=== PATIENT | female | born 1930 | race African-American/Black ===

== ENCOUNTER 2017-06-21 14:54 | Inpatient (IN) | payer OTHER ==
[~2017-06-21] VITALS: Ht 144.8 cm; Wt 59.5 kg
[~2017-06-21 14:54] MED LIST: ADULT LOW DOSE81 M1 PO; ALENDRONATE SOD70 MG PO; AMLODIPINE BESYL5 MG PO; ASPIR-TRIN325 M1 PO; ASPIRIN CHEWABL81 M1 GT; Ascorbic Acid,Ester- PO; CALTRATE 600 +1 EAC1 PO; COLCHICINE,COL0.6 MG PO; COLCHICINE0.6 MG PO; COUMADIN5 MG PO; Coumadin,Jantoven PO; Dulcolax PO; Ecotrin PO; FOSAMAX70 MG PO; Fosamax PO; LOVENOX60 MG/0.6 SC; MELOXICAM7.5 MG PO; MOBIC7.5 MG PO; NEXIUM20 MG PO; NEXIUM40 MG PO; NORVASC5 MG PO; Norvasc PO; OSCAL, OYSTER500 MG PO; Oyst-Cal D, Oscal W/ PO; PRAVACHOL40 MG PO; PREDNISONE5 MG PO; PROTONIX40 MG PO; PULMICORT180 MICROG IH; SENOKOT S,PE1 TABLET PO; SIMVASTATIN40 M1 PO; THERAGRAN1 TABLET PO; Tylenol Regular Stre PO; VITAMIN D50000 UNI1 PO; Vicodin,Lortab 5/500 PO; Zocor PO
[2017-06-21 15:41] LABS: HEMATOCRIT 39.1 % (36.0-46.0); HEMOGLOBIN 13.5 G/DL (11.9-15.5); MCH 30.3 PG (29.0-34.0); MCHC 34.5 G/DL (30.0-36.0); MCV 87.7 FL (83-99); PLATELET COUNT 210 K/uL (156-360); RBC DIS.WIDTH-CV 14.8 % (11.8-14.6); RBC DIS.WIDTH-SD 47.9 % (39-53); RED BLOOD COUNT 4.46 M/uL (3.80-5.20); WHITE BLOOD COUNT 6.6 K/uL (4.1-10.2)
[2017-06-21 15:48] LABS: INTER. NORMALIZED RATIO 2.8
[2017-06-21 15:49] LABS: CHLORIDE 107 mEq/L (99-109); POTASSIUM 3.7 mEq/L (3.7-5.4); SODIUM 141 mEq/L (136-147)
[2017-06-21 15:51] LABS: GLUCOSE 104 mg/dL (70-99)
[2017-06-21 15:55] LABS: CREATININE 0.9 mg/dL (0.6-1.3); GFR ESTIMATE (CALCULATED) > 59 mL/min/
[2017-06-21 15:56] LABS: UREA NITROGEN (BUN) 16 mg/dL (9-23)
[2017-06-21 16:01] LABS: TROP-I INTERPRETATION NEGATIVE; TROPONIN-I < 0.01 ng/mL (0.0-0.30)
[2017-06-21] MEDS ORDERED: COUMADIN2.5 MG PO (16:42)
[2017-06-21] MEDS ORDERED: COUMADIN5 MG PO (16:42)
[2017-06-21] MEDS ORDERED: COMBIGAN O20 DROP/5 BOTH EYES (16:45)
[2017-06-21] MEDS ORDERED: PROAIR HFA8.5 GM IH (16:45)
[2017-06-21] MEDS ORDERED: COLCRYS0.6 MG PO (16:46)
[2017-06-21] MEDS ORDERED: ERGOCALCIF50000 UNIT PO (16:46)
[2017-06-21] MEDS ORDERED: LUMIGAN 0.50 DROP/22 BOTH EYES (16:46)
[2017-06-21 17:27] LABS: CREATINE KINASE 144 IU/L (1-294)
[2017-06-21 18:41] VITALS: BP 127/76
[2017-06-21 18:57] VITALS: BP 138/82
[2017-06-21 20:10] VITALS: BP 142/72
[2017-06-21 22:08] VITALS: BP 128/64
[2017-06-21 23:14] VITALS: BP 135/69
[2017-06-22 03:34] VITALS: BP 135/72
[2017-06-22 06:14] LABS: HEMOGLOBIN 12.5 G/DL (11.9-15.5); MCH 29.3 PG (29.0-34.0); MCHC 33.8 G/DL (30.0-36.0); MCV 86.9 FL (83-99); PLATELET COUNT 185 K/uL (156-360); RBC DIS.WIDTH-CV 14.6 % (11.8-14.6); RBC DIS.WIDTH-SD 46.7 % (39-53); RED BLOOD COUNT 4.26 M/uL (3.80-5.20); WHITE BLOOD COUNT 8.8 K/uL (4.1-10.2)
[2017-06-22 06:16] LABS: INTER. NORMALIZED RATIO 1.8
[2017-06-22 06:39] LABS: CHLORIDE 102 MEQ/L (99-109); CREATININE 0.6 MG/DL (0.6-1.3); GFR ESTIMATE (CALCULATED) > 59 mL/min/; GLUCOSE 118 mg/dL (70-99); POTASSIUM 3.3 MEQ/L (3.7-5.4); SODIUM 137 MEQ/L (136-147); UREA NITROGEN (BUN) 9 mg/dL (9-23)
[2017-06-22 10:31] VITALS: BP 151/80
[2017-06-22 19:09] VITALS: BP 116/62
[2017-06-22 23:27] VITALS: BP 119/58
[2017-06-23 05:06] VITALS: BP 127/61
[2017-06-23 05:45] LABS: BASOPHIL (%) 0.1 % (0-1); EOSINOPHIL (%) 0 % (0-5); HEMATOCRIT 33.4 % (36.0-46.0); HEMOGLOBIN 11.3 G/DL (11.9-15.5); IMMATURE GRANULOCYTE (%) 0.4 % (0.0-0.7); LYMPHOCYTE COUNT 1.3 K/uL (1.0-2.8); MCH 29.5 PG (29.0-34.0); MCHC 33.8 G/DL (30.0-36.0); MCV 87.2 FL (83-99); MONOCYTE (%) 12.6 % (3-12); NEUTROPHIL (%) 70.9 % (45-76); NEUTROPHIL COUNT 5.7 K/uL (1.8-6.4); PLATELET COUNT 157 K/uL (156-360); RBC DIS.WIDTH-CV 14.6 % (11.8-14.6); RBC DIS.WIDTH-SD 46.3 % (39-53); RED BLOOD COUNT 3.83 M/uL (3.80-5.20); WHITE BLOOD COUNT 8.1 K/uL (4.1-10.2)
[2017-06-23 06:16] LABS: ALBUMIN 3.2 G/DL (3.2-4.8); ALKALINE PHOSPHATASE 49 IU/L (3-129); ALT (GPT) 14 IU/L (3-49); AST (GOT) 25 IU/L (2-34); CHLORIDE 104 MEQ/L (99-109); CREATININE 0.8 MG/DL (0.6-1.3); GFR ESTIMATE (CALCULATED) > 59 mL/min/; GLUCOSE 102 mg/dL (70-99); POTASSIUM 3.2 MEQ/L (3.7-5.4); SODIUM 139 MEQ/L (136-147); TOTAL PROTEIN 6.3 G/DL (6.4-8.3); UREA NITROGEN (BUN) 11 mg/dL (9-23)
[2017-06-23 08:50] VITALS: BP 112/76
[2017-06-23 10:19] LABS: MAGNESIUM 1.4 mg/dl (1.3-2.7)
[2017-06-23 11:00] LABS: APPEARANCE CLEAR ((CLEAR)); BILIRUBIN NEGATIVE; BLOOD MODERATE; COLOR YELLOW ((YELLOW)); GLUCOSE (STRIP) NEGATIVE; KETONES 20; LEUKOCYTES NEGATIVE; NITRITE NEGATIVE; PROTEIN (STRIP) 30; SPECIFIC GRAVITY 1.021 (1.000-1.030); UROBILINOGEN 0.2 MG/DL (0.2-1.0)
[2017-06-23 12:01] LABS: BACTERIA NONE SEEN /HPF; EPITHELIAL CELLS RARE /HPF; MUCUS TRACE /LPF; RED BLOOD CELLS 15-20 /HPF (0-5); UCUL ADDED? YES
[2017-06-23 12:38] LABS: INTER. NORMALIZED RATIO 1.8
[2017-06-23 19:16] VITALS: BP 132/63
[2017-06-23 23:35] VITALS: BP 122/69
[2017-06-24 03:24] VITALS: BP 128/71
[2017-06-24 07:23] VITALS: BP 120/64
[2017-06-24 09:07] LABS: BASOPHIL (%) 0.1 % (0-1); EOSINOPHIL (%) 0 % (0-5); HEMATOCRIT 32.9 % (36.0-46.0); HEMOGLOBIN 10.8 G/DL (11.9-15.5); IMMATURE GRANULOCYTE (%) 0.5 % (0.0-0.7); LYMPHOCYTE (%) 11.7 % (15-42); LYMPHOCYTE COUNT 1.4 K/uL (1.0-2.8); MCH 29.3 PG (29.0-34.0); MCHC 32.8 G/DL (30.0-36.0); MCV 89.4 FL (83-99); MONOCYTE (%) 9.9 % (3-12); MONOCYTE COUNT 1.1 K/uL (0-0.8); NEUTROPHIL (%) 77.8 % (45-76); NRBC (%) 0.2 /100 WBC (0-0); PLATELET COUNT 158 K/uL (156-360); RBC DIS.WIDTH-CV 14.9 % (11.8-14.6); RBC DIS.WIDTH-SD 48.9 % (39-53); RED BLOOD COUNT 3.68 M/uL (3.80-5.20); WHITE BLOOD COUNT 11.5 K/uL (4.1-10.2)
[2017-06-24 09:20] LABS: INTER. NORMALIZED RATIO 1.4
[2017-06-24 09:40] LABS: CHLORIDE 102 MEQ/L (99-109); CREATININE 0.7 MG/DL (0.6-1.3); GFR ESTIMATE (CALCULATED) > 59 mL/min/; GLUCOSE 133 mg/dL (70-99); POTASSIUM 3.5 MEQ/L (3.7-5.4); SODIUM 137 MEQ/L (136-147); UREA NITROGEN (BUN) 11 mg/dL (9-23)
[2017-06-24 11:37] VITALS: BP 121/62
[2017-06-24 15:29] VITALS: BP 134/65
[2017-06-24 19:31] VITALS: BP 127/58
[2017-06-24 23:10] VITALS: BP 94/50
[2017-06-25 03:38] VITALS: BP 121/61
[2017-06-25 07:03] VITALS: BP 106/56
[2017-06-25 07:16] LABS: BASOPHIL (%) 0.1 % (0-1); EOSINOPHIL (%) 0.4 % (0-5); HEMATOCRIT 27.9 % (36.0-46.0); HEMOGLOBIN 9.3 G/DL (11.9-15.5); IMMATURE GRANULOCYTE (%) 0.6 % (0.0-0.7); LYMPHOCYTE (%) 9.5 % (15-42); MCH 29.5 PG (29.0-34.0); MCHC 33.3 G/DL (30.0-36.0); MCV 88.6 FL (83-99); MONOCYTE (%) 10.9 % (3-12); MONOCYTE COUNT 1.2 K/uL (0-0.8); NEUTROPHIL (%) 78.5 % (45-76); NEUTROPHIL COUNT 8.4 K/uL (1.8-6.4); NRBC (%) 0.2 /100 WBC (0-0); PLATELET COUNT 155 K/uL (156-360); RBC DIS.WIDTH-CV 14.8 % (11.8-14.6); RED BLOOD COUNT 3.15 M/uL (3.80-5.20); WHITE BLOOD COUNT 10.7 K/uL (4.1-10.2)
[2017-06-25 07:34] LABS: INTER. NORMALIZED RATIO 1.3
[2017-06-25 07:44] LABS: ALBUMIN 2.5 G/DL (3.2-4.8); ALKALINE PHOSPHATASE 60 IU/L (3-129); CHLORIDE 102 MEQ/L (99-109); CREATININE 0.6 MG/DL (0.6-1.3); GFR ESTIMATE (CALCULATED) > 59 mL/min/; GLUCOSE 113 mg/dL (70-99); POTASSIUM 3.6 MEQ/L (3.7-5.4); SODIUM 133 MEQ/L (136-147); TOTAL BILIRUBIN 0.9 MG/DL (0.0-1.0); TOTAL PROTEIN 5.4 G/DL (6.4-8.3); UREA NITROGEN (BUN) 13 mg/dL (9-23)
[2017-06-25 07:46] LABS: ALT (GPT) 36 IU/L (3-49); AST (GOT) 83 IU/L (2-34)
[2017-06-25 09:19] LABS: MAGNESIUM 2.1 mg/dl (1.3-2.7)
[2017-06-25 10:21] LABS: APPEARANCE CLEAR ((CLEAR)); BILIRUBIN NEGATIVE; BLOOD NEGATIVE; COLOR YELLOW ((YELLOW)); GLUCOSE (STRIP) 150; KETONES NEGATIVE; LEUKOCYTES NEGATIVE; NITRITE NEGATIVE; PROTEIN (STRIP) NEGATIVE; SPECIFIC GRAVITY 1.016 (1.000-1.030); UROBILINOGEN 0.2 MG/DL (0.2-1.0)
[2017-06-25 11:14] VITALS: BP 109/55
[2017-06-25 19:17] VITALS: BP 118/62
[2017-06-25 23:50] VITALS: BP 129/62
[2017-06-26 04:06] VITALS: BP 127/65
[2017-06-26 04:40] LABS: INTER. NORMALIZED RATIO 1.5
[2017-06-26 07:05] VITALS: BP 134/65
[2017-06-26 09:30] LABS: CHLORIDE 97 MEQ/L (99-109); CREATININE 0.5 MG/DL (0.6-1.3); GFR ESTIMATE (CALCULATED) > 59 mL/min/; GLUCOSE 108 mg/dL (70-99); POTASSIUM 4.1 MEQ/L (3.7-5.4); SODIUM 129 MEQ/L (136-147); UREA NITROGEN (BUN) 11 mg/dL (9-23)
[2017-06-26 09:31] LABS: HEMATOCRIT 28.2 % (36.0-46.0); HEMOGLOBIN 9.6 G/DL (11.9-15.5); MCH 29.8 PG (29.0-34.0); MCV 87.6 FL (83-99); NRBC (%) 0.4 /100 WBC (0-0); PLATELET COUNT 222 K/uL (156-360); RBC DIS.WIDTH-CV 14.6 % (11.8-14.6); RBC DIS.WIDTH-SD 46.9 % (39-53); RED BLOOD COUNT 3.22 M/uL (3.80-5.20); WHITE BLOOD COUNT 12.3 K/uL (4.1-10.2)
[2017-06-26 11:42] VITALS: BP 114/64
[2017-06-26 15:29] LABS: CHLORIDE 96 MEQ/L (99-109); CREATININE 0.6 MG/DL (0.6-1.3); GFR ESTIMATE (CALCULATED) > 59 mL/min/; GLUCOSE 155 mg/dL (70-99); POTASSIUM 4.3 MEQ/L (3.7-5.4); SODIUM 127 MEQ/L (136-147); UREA NITROGEN (BUN) 13 mg/dL (9-23)
[2017-06-26 15:40] VITALS: BP 136/80
[2017-06-26 19:48] VITALS: BP 113/55
[2017-06-26 23:19] VITALS: BP 115/57
[2017-06-27 02:54] VITALS: BP 114/56
[2017-06-27 05:59] LABS: BASOPHIL (%) 0.1 % (0-1); EOSINOPHIL (%) 0 % (0-5); HEMOGLOBIN 9.1 G/DL (11.9-15.5); IMMATURE GRANULOCYTE (%) 0.7 % (0.0-0.7); LYMPHOCYTE (%) 8.2 % (15-42); MCH 30.5 PG (29.0-34.0); MCV 87.2 FL (83-99); MONOCYTE (%) 8.1 % (3-12); NEUTROPHIL (%) 82.9 % (45-76); NEUTROPHIL COUNT 10.1 K/uL (1.8-6.4); NRBC (%) 0.7 /100 WBC (0-0); PLATELET COUNT 228 K/uL (156-360); RBC DIS.WIDTH-CV 14.6 % (11.8-14.6); RBC DIS.WIDTH-SD 46.4 % (39-53); RED BLOOD COUNT 2.98 M/uL (3.80-5.20); WHITE BLOOD COUNT 12.1 K/uL (4.1-10.2)
[2017-06-27 06:17] LABS: INTER. NORMALIZED RATIO 1.6
[2017-06-27 06:36] LABS: ALBUMIN 2.7 G/DL (3.2-4.8); ALKALINE PHOSPHATASE 88 IU/L (3-129); ALT (GPT) 51 IU/L (3-49); AST (GOT) 65 IU/L (2-34); CHLORIDE 102 MEQ/L (99-109); CREATININE 0.6 MG/DL (0.6-1.3); GFR ESTIMATE (CALCULATED) > 59 mL/min/; POTASSIUM 4.1 MEQ/L (3.7-5.4); UREA NITROGEN (BUN) 14 mg/dL (9-23)
[2017-06-27 06:37] LABS: GLUCOSE 116 mg/dL (70-99); SODIUM 134 MEQ/L (136-147); TOTAL PROTEIN 6.3 G/DL (6.4-8.3)
[2017-06-27 07:36] VITALS: BP 123/66
[2017-06-27] MEDS ORDERED: PREDNISONE20 MG PO (10:47)
[2017-06-27] MEDS ORDERED: TRAMADOL HCL50 MG PO (10:58)
[2017-06-27] MEDS ORDERED: OXYCODONE HCL5 MG PO (10:58)
== END 2017-06-27 13:08 | DRG 470 ==
LOC: EME 14:54 → EDOF 16:17 → 3EAST 16:17 → ENRESERV 16:31 → 3EAST 19:58
PROVIDERS: Hospitalist; Internal Medicine; Physician Assistant Medical
PROC: 30233K1 Transfusion of Nonautologous Frozen Plasma into Peripheral Vein, Percutaneous Approach (ICD-10-PCS; 2017-06-21)
PROC: 0SRR0JA Replacement of Right Hip Joint, Femoral Surface with Synthetic Substitute, Uncemented, Open Approach (ICD-10-PCS; principal; 2017-06-22)
DX: S72.041A Displaced fracture of base of neck of right femur, initial encounter for closed fracture (principal); E87.1 Hypo-osmolality and hyponatremia; E78.5 Hyperlipidemia, unspecified; E87.6 Hypokalemia; W01.0XXA Fall on same level from slipping, tripping and stumbling without subsequent striking against object, initial encounter; S50.311A Abrasion of right elbow, initial encounter; I10 Essential (primary) hypertension; K21.9 Gastro-esophageal reflux disease without esophagitis; M06.9 Rheumatoid arthritis, unspecified; M10.9 Gout, unspecified; R31.29 Other microscopic hematuria; Z79.01 Long term (current) use of anticoagulants; Y92.009 Unspecified place in unspecified non-institutional (private) residence as the place of occurrence of the external cause; Z86.711 Personal history of pulmonary embolism; Z86.718 Personal history of other venous thrombosis and embolism; Z90.710 Acquired absence of both cervix and uterus; Z88.2 Allergy status to sulfonamides
CPT/HCPCS: 70450; 71010; 72125; 73502; 73610; 80048; 80048 91; 80053; 81003; 82550; 82550 91; 83735; 84484; 85025; 85027; 85610; 86850; 86900; 86901; 87040; 87086; 90686; 93005; 94760; 94799; 97530 GP; 99202; 99281; 99285; J0330; J0690; J2270; J2405; J2920; J3010; J3475; J3480; J7030; J7512; P9017; S0028